=== PATIENT | male | born 1965 | race Caucasian/White ===

== ENCOUNTER 2024-11-01 16:56 | Day surgery (SDC) | payer BC ==
[2024-11-01] VITALS (9 sets, daily range): BP systolic 123–176; BP diastolic 64–106
[~2024-11-01] VITALS: Ht 172.7 cm; Wt 68.0 kg
[~2024-11-01 16:56] MED LIST: NAPROSYN500 MG OR; PRILOSEC OTC20 MG PO; ULTRAM50 MG OR
[2024-11-01] MEDS ORDERED: GLUCAGON HCL (Rdna) 1 MG VIAL IV ONE (17:00)
[2024-11-01 17:19] LABS: BASO% 0.3 % (0-3); HEMATOCRIT 45.2 % (39.0-50.0); HEMOGLOBIN 15.4 g/dl (14.0-18.0); IMMATURE GRANULOCYTES 0.5 % (0.0-5.0); LYMPH% 24.1 % (15-41); MEAN CORPUSCULAR HGB 28.9 pG CALC (26.0-32.0); MEAN CORPUSCULAR HGB CONC 34.1 g/dL CAL (32.0-36.0); MONO% 6.5 % (2-13); NEUT# 6.22 thou/uL (1.82-7.42); NEUT% 66.6 % (42-76); RED BLOOD COUNT 5.32 mill/uL (4.70-6.10); RED CELL DISTRI WIDTH 13.5 % (11.5-15.5)
[2024-11-01 17:35] LABS: ALBUMIN 4.8 g/dL (3.2-5.0); BILIRUBIN, TOTAL 1.1 mg/dL (0.2-1.3); CREATININE 0.9 mg/dL (0.7-1.3); POTASSIUM 4.1 mmol/l (3.5-5.1); TOTAL PROTEIN 8.3 g/dL (6.3-8.2)
[2024-11-01] MEDS ORDERED: SODIUM CHLORIDE 0.9% 1,000 ML IV ONE ×2 (18:50→20:46)
[2024-11-01] MEDS ORDERED: FAMOTIDINE 10MG/ML 2ML SDV IV ONE (18:56)
[2024-11-01] MEDS ORDERED: ACETAMINOPHEN 100 ML IV ONE (20:42)
[2024-11-02] MEDS ORDERED: SUCCINYLCHOLINE CHLORIDE 20 MG/ML 10ML VIAL IV ONE (10:39)
[2024-11-02] MEDS ORDERED: PROPOFOL 200 MG/20 ML VIAL IV ONE (10:39)
[2024-11-02] MEDS ORDERED: SUGAMMADEX SODIUM 200 MG/2 ML SDV IV ONE (10:39)
[2024-11-02] MEDS ORDERED: LIDOCAINE HCL 2% 2ML SDV IV ONE (10:39)
== END 2024-11-01 21:14 | disposition home or self-care (01) | DRG 394 ==
LOC: ED 16:56 → ORM 18:17 → ED 18:51 → ORM 21:14
PROVIDERS: Family Medicine; ATTEND Surgery
PROC: 0DC58ZZ Extirpation of Matter from Esophagus, Via Natural or Artificial Opening Endoscopic (ICD-10-PCS; principal; 2024-11-01)
PROC: 0DB38ZX Excision of Lower Esophagus, Via Natural or Artificial Opening Endoscopic, Diagnostic (ICD-10-PCS; 2024-11-01)
PROC: 0DB28ZX Excision of Middle Esophagus, Via Natural or Artificial Opening Endoscopic, Diagnostic (ICD-10-PCS; 2024-11-01)
PROC: 0D738ZZ Dilation of Lower Esophagus, Via Natural or Artificial Opening Endoscopic (ICD-10-PCS; 2024-11-01)
DX: T18.128A Food in esophagus causing other injury, initial encounter (principal); K22.10 Ulcer of esophagus without bleeding; W44.F3XA Food entering into or through a natural orifice, initial encounter
CPT/HCPCS: J0131; J1100; J1610